=== PATIENT | female | born 1995 | race African-American/Black ===

== ENCOUNTER 2017-07-16 21:00 | Emergency (ER) | payer SELFPAY ==
[~2017-07-16] VITALS: Ht 167.6 cm; Wt 54.5 kg
[2017-07-16 21:01] VITALS: BP 127/71; PULSE 107; RESP 16; TEMP 98.8; O2SAT 97
[2017-07-16 21:55] VITALS: PULSE 94
[2017-07-16] MEDS ORDERED: CEPH-460 PO (21:55)
[2017-07-16] MEDS ORDERED: BACT800T5 PO (21:55)
[2017-07-16] MEDS ORDERED: SULFAMETHOXAZOLE-TRIMETHOPRIM DS 800-160 MG TAB PO ONE (22:00)
[2017-07-16] MEDS ORDERED: CEPHALEXIN MONOHYDRATE 500 MG CAP PO ONE (22:00)
--- NOTE | 2017-07-16 22:03 | PD ---
HPI Chief Complaint: Facial Pain or Swelling Time Seen by Provider: 21:45 Travel History International Travel<30 days: No Contact w/Intl Traveler<30days: No Traveled to known affect area: No History of Present Illness HPI 22-year-old Afro-[place] female presents to emergency department with several day history of swelling to the right upper lip as well as pain and swelling to the right maxillary sinus and both nares with vesicular lesion to the right upper lip with Cantu crusting in the past 24 hours. Patient also has small amount of bleeding from her lip as well as both nares. She complains of pressure and pain in the right maxillary sinus. She denies significant sore throat or ear pain. Headache is localized to the right maxillary sinus and is currently 8 out of 10, and worse with bending over, sneezing, pulling her nose. She has no other symptoms. She denies history of cold sores in the past. No history of MRSA. She denies fever, she has no known drug allergies. PFSH Past Medical History Medical History: Denies Significant Hx Diminished Hearing: No Immunizations Current: No ?: Not Past Surgical History Surgical History: No Previous Surgery Social History Alcohol Use: No Tobacco Use: No Substance Use: No Allergies-Medications (Allergen,Severity, Reaction): Coded Allergies: No Known Allergies (Unverified , 07/16/17) Reported Meds & Prescriptions Reported Meds & Active Scripts Active Keflex (Cephalexin) 500 Mg Cap 500 Mg PO Q8H Bactrim DS (Sulfamethoxazole-Trimethoprim) 800-160 Mg Tab 1 Tab PO BID Review of Systems Except as stated in HPI: all other systems reviewed are Neg General / Constitutional: No: Fever, Chills Eyes: No: Diploplia, Blurred Vision, Photophobia, Drainage, Redness, Foreign Body Sensation, Pain, Tearing, Blind Spots, Visual changes, Blindness HENT: Positive: Rhinitis, Rhinorrhea, Congestion, Nosebleed, No: Headaches, Vertigo, Lightheadedness, Sore Throat, Neck Stiffness, Neck Pain, Gingival Bleeding, Dental Difficulties, Ear Discharge, Earache Cardiovascular: No: Chest Pain or Discomfort Respiratory: No: Cough, Shortness of Breath, Wheezing Gastrointestinal: No: Abdominal Pain Genitourinary: No: Dysuria Musculoskeletal: No: Pain Skin: Positive Lesions (see history present illness), No Rash Neurologic: No: Weakness Psychiatric: No: Depression Endocrine: No: Polydipsia Hematologic/Lymphatic: No: Easy Bruising Physical Exam Narrative GENERAL: Patient appears in no acute distress. SKIN: Warm and dry. Patient has crusted vesicular lesion to the right upper lateral lip with some cantu crusting. No obvious cellulitis, lymphangitis, pointing, or abscess. HEAD: Atraumatic. Normocephalic. EYES: Pupils equal and round. No scleral icterus. No injection or drainage. ENT: Patient has nasal crusting. Mucous membranes pink and moist. Patient has moderate sinus tenderness with percussion and palpation of the right maxillary sinus Pharynx is clear. No significant lymphadenopathy. No viral lesions are noted within the oral cavity. NECK: Trachea midline. Supple and nontender without lymphadenopathy. CARDIOVASCULAR: Regular rate and rhythm. RESPIRATORY: No accessory muscle use. Clear to auscultation. Breath sounds equal bilaterally. MUSCULOSKELETAL: Extremities without clubbing, cyanosis, or edema. No obvious deformities. NEUROLOGICAL: Awake and alert. No obvious cranial nerve deficits. Motor grossly within normal limits. Five out of 5 muscle strength in the arms and legs. Normal speech. PSYCHIATRIC: Appropriate mood and affect; insight and judgment normal. Data Data Last Documented VS Vital Signs Date Time Temp Pulse Resp B/P (MAP) Pulse Ox O2 Delivery O2 Flow Rate FiO2 07/16/17 21:55 94 07/16/17 21:01 98.8 16 97 Room Air Orders Orders Sulfamet-Trimeth Ds 800-160 Mg (Bactrim (07/16/17 22:00) Cephalexin (Keflex) (07/16/17 22:00) [facility] Medical Decision Making Medical Screen Exam Complete: Yes Emergency Medical Condition: Yes Differential Diagnosis HSV-1. Cold sores. Impetigo. Sinusitis. Narrative Course Patient is given cephalexin 500 mg by mouth now Patient is given Bactrim DS by mouth now. Patient continued on cephalexin 500 mg 3 times a day 10 days. Patient continued on Bactrim DS twice a day 10 days. Patient should use Tylenol, ibuprofen, and saline nasal spray as needed. Patient follow up if symptoms do not improve or worsen over the next week Diagnosis Primary Impression: Acute maxillary sinusitis Qualified Codes: J01.00 - Acute maxillary sinusitis, unspecified Additional Impressions: Cold sore Impetigo Referrals: [facility] Patient Instructions: General Instructions, Impetigo (ED), Sinusitis (ED) Additional Instructions: Patient continued on cephalexin 500 mg 3 times a day 10 days. Patient continued on Bactrim DS twice a day 10 days. Patient should use Tylenol, ibuprofen, and saline nasal spray as needed. Patient follow up if symptoms do not improve or worsen over the next week Med/Other Pt SpecificInfo: Prescription(s) given Scripts Cephalexin (Keflex) 500 Mg Cap 500 MG PO Q8H for Infection, #30 CAP 0 Refills Prov: James Dooley MD 07/16/17 Sulfamethoxazole-Trimethoprim (Bactrim DS) 800-160 Mg Tab 1 TAB PO BID for Infection, #20 TAB 0 Refills Prov: James Dooley MD 07/16/17 Disposition: 01 DISCHARGE HOME Condition: Stable León Hoover Jul 16, 2017 22:03
== END 2017-07-16 22:21 | disposition home or self-care (01) ==
LOC: NEPE 21:00
DX: J01.00 Acute maxillary sinusitis, unspecified (principal); B00.1 Herpesviral vesicular dermatitis; L01.00 Impetigo, unspecified
CPT/HCPCS: 99284